=== PATIENT | male | born 1995 | race Caucasian/White ===

== ENCOUNTER 2017-03-25 01:05 | Emergency (ER) | payer BC ==
--- NOTE | 2017-03-25 02:16 | ER Document Report ---
ED General - General Chief Complaint: Shortness Of Breath Stated Complaint: CHEST PAIN Time Seen by Provider: 03/25/17 02:03 Notes: Patient is a 22-year-old male who comes emergency department for chief complaint of intermittent symptoms for the past week where he feels like he has a squeezing sensation in his chest, or his heart will feel like it is beating fast, or if he thinks about his breathing it feels like it is uncomfortable. He denies any current shortness of breath, chest pain, lightheadedness, or palpitations. He smokes cigarettes, smokes marijuana, drinks alcohol, however he denies ever using any cocaine, methamphetamine, or any other recreational drugs than marijuana. He denies IV drug abuse. No personal or family history of early cardiac disease. He denies fever or chills. TRAVEL OUTSIDE OF THE [place] IN LAST 30 DAYS: No - Related Data Allergies/Adverse Reactions: No Known Allergies Allergy (Verified 11/02/14 09:46) Past Medical History - General Information source: Patient, Parent - Social History Smoking Status: Current Every Day Smoker Smoking Education Provided: Yes - <3 min Frequency of alcohol use: Social Drug Abuse: Marijuana Lives with: Alone Family History: Reviewed & Not Pertinent - Past Medical History Cardiac Medical History: Denies: Hx Coronary Artery Disease, Hx Heart Attack, Hx Hypertension Pulmonary Medical History: Denies: Hx Asthma, Hx Bronchitis, Hx COPD, Hx Pneumonia Neurological Medical History: Denies: Hx Cerebrovascular Accident, Hx Seizures Musculoskeltal Medical History: Denies Hx Arthritis Past Surgical History: Reports: Hx Orthopedic Surgery - RIGHT 5TH FINGER - Immunizations Immunizations up to date: Yes Hx Diphtheria, Pertussis, Tetanus Vaccination: Yes - 10/29/14 Review of Systems - Review of Systems Constitutional: No symptoms reported EENT: No symptoms reported Cardiovascular: See HPI Respiratory: See HPI Gastrointestinal: No symptoms reported Genitourinary: No symptoms reported Male Genitourinary: No symptoms reported Musculoskeletal: No symptoms reported Skin: No symptoms reported Hematologic/Lymphatic: No symptoms reported Neurological/Psychological: No symptoms reported Physical Exam - Vital signs Vitals: Temp Pulse Resp BP Pulse Ox 98.3 F 114 H 14 129/75 H 99 03/25/17 01:22 03/25/17 01:22 03/25/17 01:22 03/25/17 01:03/25/17 01:22 Interpretation: Normal - General General appearance: Appears well, Alert In distress: None - Alert and well-appearing - HEENT Head: Normocephalic, Atraumatic Eyes: Normal Pupils: PERRL - Respiratory Respiratory status: No respiratory distress. No: Respiratory distress, Labored , Tachypnea Chest status: Nontender. No: Tender Breath sounds: Normal. No: Decreased air movement, Nonproductive cough, Wheezing Chest palpation: Normal - Cardiovascular Rhythm: Regular. No: Tachycardia - No tachycardia on my exam Heart sounds: Normal auscultation, S1 appreciated, S2 appreciated Murmur: No - Abdominal Inspection: Normal Distension: No distension Bowel sounds: Normal Tenderness: Nontender. No: Tender, Guarding Organomegaly: No organomegaly - Back Back: Normal, Nontender - Extremities General upper extremity: Normal inspection, Nontender, Normal color, Normal ROM , Normal temperature General lower extremity: Normal inspection, Nontender, Normal color, Normal ROM , Normal temperature, Normal weight bearing. No: Marino's sign - Neurological Neuro grossly intact: Yes Cognition: Normal Orientation: AAOx4 Razia Coma Scale Eye Opening: Spontaneous Razia Coma Scale Verbal: Oriented Razia Coma Scale Motor: Obeys Commands [place] Coma Scale Total: 15 Speech: Normal Motor strength normal: LUE, RUE, LLE, RLE Sensory: Normal - Psychological Associated symptoms: Normal affect, Normal mood - Skin Skin Temperature: Warm Skin Moisture: Dry Skin Color: Normal Course - Re-evaluation Re-evalutation: Vital signs show initial tachycardia on arrival, however on my exam he is not tachycardic, he is alert, well-appearing, has normal respirations, clear sounding lungs, no hypoxia, no tenderness over the chest, no signs of trauma, he denies any IV drug abuse. Chest x-ray with no evidence of pneumothorax or concerning emergent abnormality. EKG shows sinus rhythm with no T-wave inversions in consecutive leads or ST segment changes, normal ID interval, no acute findings. Patient asymptomatic on my exam and on reexamination. Discussed findings. Discussed dangers of smoking, discussed cessation, discussed follow-up and return precautions. Mom states that he took Percocet a few days ago and she wants a discussion about recreational drugs, I discussed recreational drugs both taking medications not prescribed to you and illegal drugs, I discussed high chance of and disease processes. He denies SI or HI. Patient states understanding and agreement, states he plans to quit smoking as well. Discussed follow-up and return precautions. Patient states understanding and agreement. Stable at time of discharge. - Vital Signs Vital signs: Temp Pulse Resp BP Pulse Ox 98.3 F 80 14 100/78 96 03/25/17 01:22 03/25/17 03:11 03/25/17 01:22 03/25/17 03:11 03/25/17 03:11 Discharge - Discharge Clinical Impression: Shortness of breath, Rapid heartbeat Condition: Stable Disposition: HOME, SELF-CARE Additional Instructions: Your EKG, chest x-ray, and evaluation do not show any concerning abnormalities. Improve your diet, hydrate better, stop smoking. Avoid recreational drugs, do not take any medications not prescribed to you. Follow-up with primary care. Return to emergency department for any concerning or worsening symptoms including difficulty breathing, chest pain, passing out, fever of 100.4 or greater, or any other concerning symptoms.
--- NOTE | 2017-03-25 02:17 | RADIOLOGY REPORT (SQ) ---
EXAM DESCRIPTION: CHEST PA/LAT CLINICAL HISTORY: 22 years, Male, near syncope COMPARISON: 8.31.15 FINDINGS: Normal lung volume, clear parenchyma, normal cardiac silhouette, and intact bony thorax. IMPRESSION: No acute cardiopulmonary findings.
[2017-03-25 03:11] VITALS: BP 100/78
--- NOTE | 2017-03-25 19:49 | EKG REPORT ---
SEVERITY:- NORMAL ECG - SINUS RHYTHM : Confirmed by: Lilian Drew 25-Mar-2017 19:48:25
== END 2017-03-25 03:33 | disposition home or self-care (01) ==
LOC: ER 01:05
DX: R06.02 Shortness of breath (principal); R00.0 Tachycardia, unspecified; F12.10 Cannabis abuse, uncomplicated; F17.200 Nicotine dependence, unspecified, uncomplicated; Z71.6 Tobacco abuse counseling
CPT/HCPCS: 71046; 93005; 93010; 99285

== ENCOUNTER 2017-12-31 06:58 | Emergency (ER) | payer BC ==
[2017-12-31 07:17] VITALS: BP 114/74
--- NOTE | 2017-12-31 07:38 | ER Document Report ---
HPI - HPI Pain Level: 5 Notes: Patient is a 22-year-old male who presents to the ED complaining of right ear pain over the last couple days. Patient states that he has some ringing in his ear which she has had before. Patient states that he has a history of ear infections in the past and this feels similar. The pain does not radiate. Denies any drug allergies. He has not been swimming. Patient states that he had nasal congestion and discharge as well as sinus pressure that precipitated his events, but those symptoms have since improved. No other concerns or complaints. Denies any headache, fever, neck pain, URI, sore throat, chest pain , palpitations, syncope, cough, shortness of breath, wheeze, dyspnea, abdominal pain, nausea/vomiting/diarrhea, urinary retention, dysuria, hematuria, or rash. - ROS Systems Reviewed and Negative: Yes All other systems reviewed and negative Past Medical History - Social History Smoking Status: Unknown if Ever Smoked Family History: Reviewed & Not Pertinent - Past Medical History Cardiac Medical History: Denies: Hx Coronary Artery Disease, Hx Heart Attack, Hx Hypertension Pulmonary Medical History: Denies: Hx Asthma, Hx Bronchitis, Hx COPD, Hx Pneumonia Neurological Medical History: Denies: Hx Cerebrovascular Accident, Hx Seizures Renal/ Medical History: Denies: Hx Peritoneal Dialysis Musculoskeletal Medical History: Denies Hx Arthritis Past Surgical History: Reports: Hx Orthopedic Surgery - RIGHT 5TH FINGER - Immunizations Immunizations up to date: Yes Hx Diphtheria, Pertussis, Tetanus Vaccination: Yes - 10/29/14 Vertical Provider Document - CONSTITUTIONAL Agree With Documented VS: Yes Notes: PHYSICAL EXAMINATION: GENERAL: Well-appearing, well-nourished and in no acute distress. HEAD: Atraumatic, normocephalic. EYES: Pupils equal round and reactive to light, extraocular movements intact, sclera anicteric, conjunctiva are normal. ENT: EAC clear b/l. Rt TM is erythemic, bulging, with a bullous fluid formation laterally. Lt TM intact b/l without erythema, fluid, or perforation. No mastoid tenderness. Nares patent and without discharge. oropharynx clear without exudates. No tonsilar hypertrophy or erythema. Moist mucous membranes. No sinus tenderness. NECK: Normal range of motion, supple without lymphadenopathy. no rigidity/ meningismus. LUNGS: Breath sounds clear to auscultation bilaterally and equal. No wheezes rales or rhonchi. HEART: Regular rate and rhythm without murmurs, rubs, gallops. Extremities: No cyanosis, clubbing, or edema b/l. Peripheral pulses 2+. Capillary refill less than 3 seconds. NEUROLOGICAL: Cranial nerves grossly intact. Normal speech, normal gait. PSYCH: Normal mood, normal affect. SKIN: Warm, Dry, normal turgor, no rashes or lesions noted. - INFECTION CONTROL TRAVEL OUTSIDE OF THE [place] IN LAST 30 DAYS: No Course - Re-evaluation Re-evalutation: 12/31/17 07:35 Patient is an afebrile, well-hydrated, 22-year-old male who presents to the ED with acute otitis media of the right ear. Vitals are acceptable without any significant tachycardia, tachypnea, or hypoxia. PE is otherwise unremarkable. Patient is nontoxic-appearing and is tolerating p.o. without difficulties. No labs or imaging warranted at this time. Low suspicion for any sepsis, meningitis, severe dehydration, respiratory compromise, mastoiditis, or other systemic emergent condition at this time. Patient is aware that condition can change from initial presentation and we will send him home with a prescription for amoxicillin. Conservative measures for symptoms. He needs to monitor symptoms closely and seek medical attention with any acute changes. Recheck with your PCM this week. Call ENT for further evaluation and management. Return to the ED with any worsening/concerning symptoms otherwise as reviewed in discharge. Patient is in agreement. - Vital Signs Vital signs: Temp Pulse Resp BP Pulse Ox 98.1 F 101 H 16 114/74 96 12/31/17 07:14 12/31/17 07:14 12/31/17 07:14 12/31/17 07:14 12/31/17 07:14 Discharge - Discharge Clinical Impression: Acute otitis media, right Condition: Stable Disposition: HOME, SELF-CARE Instructions: Otitis Media ([facility]), Serous Otitis Media ([facility]) Additional Instructions: Maintain adequate fluid intake Take meds as directed tylenol/ibuprofen as needed Avoid Q-tips in the ears over the counter cold medication as needed for symptoms F/u: with your PCM in 2-3 days for a recheck Schedule a f/u with ENT Return to the ED with any fever, dizziness, tinnitus, headaches, worsening pain , chest pain, palpitations, syncope, neck pain/stiffness, shortness of breath, wheezing, drooling, trouble swallowing/breathing, abdominal pain, n/v/d, rash, or worsening/concerning symptoms otherwise. Prescriptions: Amoxicillin Trihydrate [Amoxil 875 mg Tablet] 1 tab PO BID #20 tablet Referrals: JEAN CLAUDE PÉREZ DO [ASSOCIATE] - Follow up as needed
== END 2017-12-31 07:52 | disposition home or self-care (01) ==
LOC: ER 06:58
DX: H66.91 Otitis media, unspecified, right ear (principal)
CPT/HCPCS: 99282

== ENCOUNTER 2018-05-13 18:40 | Emergency (ER) | payer BC ==
[2018-05-13] MEDS ORDERED: LIDOCAINE 1% INJ-PF (10 MG/ML) 30 ML SDV INJ ONE (19:48)
--- NOTE | 2018-05-13 19:50 | ER Document Report ---
ED Medical Screen (RME) - General Chief Complaint: Laceration to finger Stated Complaint: FINGER LACERATION Time Seen by Provider: 05/13/18 19:44 Mode of Arrival: Ambulatory Information source: Patient Notes: 23-year-old male presents with a laceration to his right index and middle finger. Patient states he was removing glass when he was cut. Tetanus is up-to-date. I have greeted and performed a rapid initial assessment of this patient. A comprehensive ED assessment and evaluation of the patient, analysis of test results and completion of medical decision making process we will be contacted by additional ED providers. PHYSICAL EXAMINATION: Vital signs reviewed GENERAL: Well-appearing, well-nourished and in no acute distress. LUNGS: No respiratory distress Musculoskeletal: Normal range of motion NEUROLOGICAL: Normal speech, normal gait. PSYCH: Normal mood, normal affect. SKIN: Laceration to the right index finger and right middle finger. TRAVEL OUTSIDE OF THE [place] IN LAST 30 DAYS: No - HPI Onset: Just prior to arrival Onset/Duration: Sudden Quality of pain: Achy Severity: Mild Associated Symptoms: None Exacerbated by: Movement Relieved by: Denies Similar symptoms previously: No Recently seen / treated by doctor: No - Related Data Smoking: Non-smoker Frequency of alcohol use: None Drug Abuse: None Allergies/Adverse Reactions: No Known Allergies Allergy (Verified 12/31/17 07:22) Past Medical History - Past Medical History Cardiac Medical History: Denies: Hx Coronary Artery Disease, Hx Heart Attack, Hx Hypertension Pulmonary Medical History: Denies: Hx Asthma, Hx Bronchitis, Hx COPD, Hx Pneumonia Neurological Medical History: Denies: Hx Cerebrovascular Accident, Hx Seizures Renal/ Medical History: Denies: Hx Peritoneal Dialysis Musculoskeltal Medical History: Denies Hx Arthritis Past Surgical History: Reports: Hx Orthopedic Surgery - RIGHT 5TH FINGER - Immunizations Immunizations up to date: Yes Hx Diphtheria, Pertussis, Tetanus Vaccination: Yes - 10/29/14 Physical Exam - Vital signs Vitals: Temp Pulse Resp BP Pulse Ox 98.7 F 120 H 16 115/66 98 05/13/18 18:48 05/13/18 18:48 05/13/18 18:48 05/13/18 18:48 05/13/18 18:48 Course - Vital Signs Vital signs: Temp Pulse Resp BP Pulse Ox 98.7 F 120 H 16 115/66 98 05/13/18 18:48 05/13/18 18:48 05/13/18 18:48 05/13/18 18:48 05/13/18 18:48
--- NOTE | 2018-05-13 20:19 | RADIOLOGY REPORT (SQ) ---
EXAM DESCRIPTION: XR HAND 1-2 VIEWS COMPLETED DATE/TME: 05/13/2018 19:47 CLINICAL HISTORY: 23 years, Male, Laceration with glass Findings: Bony alignment is anatomic. No fracture or dislocation. Soft tissues are unremarkable. IMPRESSION: No fracture. No radiopaque foreign body.
--- NOTE | 2018-05-13 21:34 | ER Document Report ---
ED General - General Chief Complaint: Laceration to finger Stated Complaint: FINGER LACERATION Time Seen by Provider: 05/13/18 19:44 Mode of Arrival: Ambulatory Information source: Patient TRAVEL OUTSIDE OF THE [place] IN LAST 30 DAYS: No - HPI Patient complains to provider of: Finger lacerations Onset: Just prior to arrival Onset/Duration: Sudden Severity: Severe Pain Level: 4 Associated symptoms: None Exacerbated by: Denies Relieved by: Denies Similar symptoms previously: No Recently seen / treated by doctor: No Notes: 23-year-old male coming in today with chief complaint of lacerations to the right index and right middle fingers. He lacerated it while he was taking glass out of the window. Last Tdap was around 10 years ago. - Related Data Allergies/Adverse Reactions: No Known Allergies Allergy (Verified 12/31/17 07:22) Past Medical History - General Information source: Patient - Social History Smoking Status: Current Every Day Smoker Frequency of alcohol use: None Drug Abuse: None Family History: Reviewed & Not Pertinent Patient has suicidal ideation: No Patient has homicidal ideation: No - Past Medical History Cardiac Medical History: Denies: Hx Coronary Artery Disease, Hx Heart Attack, Hx Hypertension Pulmonary Medical History: Denies: Hx Asthma, Hx Bronchitis, Hx COPD, Hx Pneumonia Neurological Medical History: Denies: Hx Cerebrovascular Accident, Hx Seizures Renal/ Medical History: Denies: Hx Peritoneal Dialysis Musculoskeletal Medical History: Denies Hx Arthritis Past Surgical History: Reports: Hx Orthopedic Surgery - RIGHT 5TH FINGER - Immunizations Immunizations up to date: Yes Hx Diphtheria, Pertussis, Tetanus Vaccination: Yes - 10/29/14 Review of Systems - Review of Systems Notes: Constitutional: No fevers. No chills. EENT: No eye redness. No eye pain. No ear pain. No sore throat. Cardiovascular: No chest pain. No palpitations. Respiratory: No cough. No shortness of breath. No respiratory distress. Gastrointestinal: No abdominal pain. No nausea, vomiting, or diarrhea. Genitourinary: Atraumatic. No lesions. No pain. No discharge. Musculoskeletal: Atraumatic. No swelling. No deformities. Multiple finger lacerations Skin: No rash or lesions. Lymphatic: No swollen lymph nodes. Neurologic: No headache. No syncope. Psychiatric: No suicidal or homicidal ideation. Physical Exam - Vital signs Vitals: Temp Pulse Resp BP Pulse Ox 98.7 F 120 H 16 115/66 98 05/13/18 18:48 05/13/18 18:48 05/13/18 18:48 05/13/18 18:48 05/13/18 18:48 - Notes Notes: General: Well-developed, well-nourished. In no acute distress. Non-toxic appearing. Cardiac: Well-perfused. Regular rate and rhythm. No murmurs, rubs, or gallops. Pulmonary: No respiratory distress. No cyanosis. Bilateral lung fiels are clear to auscultation. Abdominal: Non-distended. Non-rigid. Bowels sounds are present in all four quadrants. No guarding or rebound. HEENT: Head is atraumatic. Conjunctivae not reddened. No tearing. PERRL. EOMI. Orbits atraumatic. No periorbital swelling or erythema. Oropharynx is without erythema, swelling, or exudates. Neck: Supple. No adenopathy. No meningismus. Dermatologic: Warm with good turgor. No rash. Atraumatic. Chest: Atraumatic. No chest wall tenderness to palpation. Musculoskeletal: There is a 2-1/2 cm laceration on the dorsal aspect of the right index finger over the proximal phalanx. There is a 1 cm laceration on the dorsal aspect of the right middle finger. Patient has full range of motion of both digits both actively and passively. Genitourinary: Examination deferred Neurologic: No gross neurologic deficits. Psychiatric: Normal mood. Course - Vital Signs Vital signs: Temp Pulse Resp BP Pulse Ox 98.7 F 120 H 16 115/66 98 05/13/18 18:48 05/13/18 18:48 05/13/18 18:48 05/13/18 18:48 05/13/18 18:48 - Consults DR MAGAÑA Time consulted: 22:46 Reason for consultation: 05/13/18 22:46 Extensor tendon laceration Consulted provider: follow-up in office - Call office in the a.m. Procedures - Laceration/Wound Repair right index finger Time completed: 22:41 Wound length (cm): 3 Wound's Depth, Shape: Flap, Other - Through subcutaneous layer Laceration pre-procedure: Sterile PPE donned, Sterile drapes applied, Shur-Clens applied Anesthetic type: 1% Lidocaine Volume Anesthetic (mLs): 3 Wound explored: Clean Wound Repaired With: Sutures Suture Size/Type: 4:0, Ethilon Number of Sutures: 6 Layer Closure?: No Post-procedure wound care: Sterile dressing applied, Splint applied Post-procedure NV exam normal: Yes Complications: No Notes: 05/13/18 22:43 There is a full extensor tendon laceration noted right middle finger Time completed: 22:43 Wound length (cm): 1 Wound's Depth, Shape: Other - In the subcutaneous tissue Laceration pre-procedure: Sterile PPE donned, Sterile drapes applied, Shur-Clens applied Anesthetic type: 1% Lidocaine Volume Anesthetic (mLs): 1 Wound explored: Clean Wound Repaired With: Sutures Suture Size/Type: 4:0 Number of Sutures: 3 Layer Closure?: No Post-procedure wound care: Sterile dressing applied Post-procedure NV exam normal: No Complications: No Discharge - Discharge Clinical Impression: Finger laceration Qualifiers: Encounter type: initial encounter Finger: index finger Damage to nail status: without damage Foreign body presence: without foreign body Laterality: right Qualified Code(s): S61.210A - Laceration without foreign body of right index finger without damage to nail, initial encounter Laceration of middle finger Qualifiers: Encounter type: initial encounter Damage to nail status: without damage Foreign body presence: without foreign body Laterality: right Qualified Code(s): S61.212A - Laceration without foreign body of right middle finger without damage to nail, initial encounter Extensor tendon laceration of finger with open wound Qualifiers: Encounter type: initial encounter Qualified Code(s): S56.429A - Laceration of extensor muscle, fascia and tendon of unspecified finger at forearm level, initial encounter; S61.209A - Unspecified open wound of unspecified finger without damage to nail, initial encounter Condition: Good Disposition: HOME, SELF-CARE Instructions: Antibiotic Ointment Protection ([facility]), Laceration Care ([facility]), Oral Narcotic Medication ([facility]), Soap Cleansing ([facility]), Tetanus Immunization Given ([facility]) Additional Instructions: Please call Dr. naidu or another hand surgeon's office in the morning to set up an appointment to have the extensor tendon fixed. Prescriptions: Cephalexin Monohydrate [Keflex 500 mg Capsule] 500 mg PO Q6H 5 Days #28 capsule Referrals: DUSTIN MAGAÑA DO [ACTIVE STAFF] - Follow up tomorrow
[2018-05-13] MEDS ORDERED: DIPH/PERTUSS(ACELL)/TETANUS VAC/PF 0.5 ML SYR (>=10YO) IM ONE (22:47)
[2018-05-13] MEDS ORDERED: HYDROCODONE/ACETAMINOPHEN 5-325 MG (6 TAB/ER DISP) PO PRN (22:47)
[2018-05-14 00:06] VITALS: BP 132/85
== END 2018-05-14 00:05 | disposition home or self-care (01) ==
LOC: ER 18:40
DX: S61.201A Unspecified open wound of left index finger without damage to nail, initial encounter (principal); S61.212A Laceration without foreign body of right middle finger without damage to nail, initial encounter; S66.320A Laceration of extensor muscle, fascia and tendon of right index finger at wrist and hand level, initial encounter; W25.XXXA Contact with sharp glass, initial encounter; Z23 Encounter for immunization; F17.200 Nicotine dependence, unspecified, uncomplicated
CPT/HCPCS: 99283; 90471; 73120; 90715; 12002; J3490

== ENCOUNTER 2018-05-17 12:51 | Day surgery (SDC) | payer BC ==
[~2018-05-17 12:51] MED LIST: CEFAZOLIN 2 GM/D5W RTU 2 GM/50 ML RTUPB IV PRN
[2018-05-17] MEDS ORDERED: FENTANYL CITRATE INJ/PF 100 MCG/2 ML AMPUL ONE (12:56)
[2018-05-17] MEDS ORDERED: ONDANSETRON HCL INJ/PF 4 MG/2 ML SDV ONE (12:57)
[2018-05-17] MEDS ORDERED: DEXAMETHASONE SOD PHOSPHATE INJ 4 MG/1 ML VIAL ONE (12:57)
[2018-05-17] MEDS ORDERED: MIDAZOLAM 2 MG/2 ML INJ ONE (12:57)
[2018-05-17] MEDS ORDERED: PROPOFOL INJ 200 MG/20 ML VIAL IV ONE (12:57)
[2018-05-17] MEDS ORDERED: CEFAZOLIN 2 GM/D5W RTU 2 GM/50 ML RTUPB IV ONE (12:59)
[2018-05-17] MEDS ORDERED: ALBUTEROL SULFATE 0.083% NEB 2.5 MG/3 ML AMPUL NEB ONE (13:23)
[2018-05-17] MEDS ORDERED: SCOPOLAMINE HYDROBROMIDE 1.5 MG PATCH.TD72 ONE (13:47)
[2018-05-17] MEDS ORDERED: MEPERIDINE HCL/PF INJ 25 MG/1 ML DISP.SYRIN IV PRN (14:16)
[2018-05-17] MEDS ORDERED: FENTANYL CITRATE INJ/PF 100 MCG/2 ML AMPUL IV PRN ×3 (14:16)
[2018-05-17] MEDS ORDERED: MORPHINE SULFATE 10 MG/ML INJ IV PRN ×2 (14:16→15:19)
[2018-05-17] MEDS ORDERED: DIPHENHYDRAMINE HCL 50 MG/ML VIAL IV PRN (14:16)
[2018-05-17] MEDS ORDERED: PROMETHAZINE HCL INJ 25 MG/1 ML VIAL IV PRN ×2 (14:16)
[2018-05-17] MEDS: LIDOCAINE 1% INJ-PF (10 MG/ML) 30 ML SDV ONE ×2 (14:20→14:31)
--- NOTE | 2018-05-17 15:10 | Operative Report ---
Operative Report DATE OF SURGERY: 05/17/18 PREOPERATIVE DIAGNOSIS: Right index finger extensor tendon laceration zone IV POSTOPERATIVE DIAGNOSIS: Same OPERATION: Repair Right index finger extensor tendon laceration zone IV SURGEON: DUSTIN MAGAÑA ANESTHESIA: LMAC COMPLICATIONS: None ESTIMATED BLOOD LOSS: Minimal PROCEDURE: Indication for above procedure: 23-year-old male who sustained laceration to his index finger from a piece of glass patient was seen at the emergency room where the area was irrigated and loosely closed. Documentation indicated extensor tendon laceration. On examination patient had evidence of extensor lag. At that point decision was made to proceed with operative intervention. Risks and benefits were explained patient verbalized understanding consented for the procedure. Procedure In Detail: Patient was seen and evaluated in the preoperative holding area. The RIGHT upper extremity was initialized and marked. Patient received 2g of Ancef IV for bacterial prophylaxis. Patient was taken back to the operative room where transferred to the operative table. Once they were adequately anesthetized a nonsterile tourniquet was placed on the upper extremity. A surgical team debriefing was performed ensuring all instrumentation was available, the surgical procedure was discussed with possible concerns reviewed. A digital block was performed utilizing 10 mL of 1% lidocaine without epinephrine. The upper extremity was prepped with chlorhexidine and alcohol and draped in a sterile fashion. A timeout was done identifying correct patient, procedure and extremity everyone in attendance agree with this and verbalized no concerns. The extremity was exsanguinated the tourniquet was inflated to 250 mmHg. Previous laceration was opened and extended proximally and distally. Blunt dissection was performed. Any peripheral veins were coagulated with bipolar cautery. Extensor tendon was then found to have 70% laceration from radial to ulnar within zone 4. Wound was copiously irrigated with normal saline no gross contamination was appreciated. Extensor tendon was then repaired with a running Silverskiold locking suture utilizing 3-0 Supramid suture. At completion patient had full extension of the PIP joint with tenodesis. Tourniquet was deflated. Any peripheral bleeding was controlled with bipolar cautery until wound was dry. Incision was closed with interrupted 4-0 nylon suture. Patient was placed in a volar splint maintaining full extension of the PIP and MP joints of the index and middle finger. Postoperative plan: Patient will follow-up as scheduled for wound check. will begin occupational therapy within 5-7 days to be fitted for a thermoplastic splint maintaining full extension of the PIP joint as per zone 4 extensor tendon repair protocol.
--- NOTE | 2018-05-17 15:10 | Discharge Summary ---
Discharge Summary (SDC) - Discharge Final Diagnosis: Right index finger extensor tendon laceration zone III Date of Surgery: 05/17/18 Discharge Date: 05/17/18 Condition: Good Forms: ASU Anesthesia D/C Instruction, Discharge POC-Surgical Service Treatment or Instructions: Schedule Follow Up w/ Dr. Aravind Magaña @ [facility] for Surgery to be seen in 10-14 days or as scheduled Reg[place]: Sweeny: White: Ice and elevate Keep splint clean/dry/intact, do not remove. If your fingers become numb please unwrap the Dave wrap but leave the splint in place, if the sensation does not return within 30 minutes please return to the emergency department. Please use ibuprofen (Motrin or Advil) 600-800 mg every 8 hours as needed for pain or fever DO NOT TAKE w/ TORADOL may use once TORADOL complete. You may also use acetaminophen (Tylenol) 1000 mg every 4-6 hours as needed for pain or fever. Please be aware that many medications contain acetaminophen, do not exceed a total of 1000 mg of acetaminophen every 6 hours. If ibuprofen and acetaminophen are not sufficient for your pain you may take the Percocet/[facility]. Please be aware that the Percocet/[facility] does contain Tylenol. Stool softener of choice when on pain medication. USE OF [id number] IBUPROFEN: Ibuprofen (Advil, Nuprin, Medipren, Motrin IB) is a medication for fever and pain control. In addition, it has anti- inflammatory effects which may be beneficial, especially in the treatment of injuries. It's best to take ibuprofen with food. Persons with ulcer disease or allergy to aspirin should notify their physician of this before taking ibuprofen. Ibuprofen can be given every four to six hours, for a total of four doses daily. Age Pain or fever dose Antiinflammatory dose 6-8 yr 200 mg (1 tab) 200 mg (1 tab) 9-11 yr 200 mg (1 tab) 200-400 mg (1-2 tab) 11-14 yr 200-400 mg (1-2 tab) 400 mg (2 tab) 15-adult 400 mg (2 tab) 600 mg (3 tab) ORAL NARCOTIC MEDICATION: You have been given a prescription for pain control. This medication is a narcotic. It's best taken with food, as nausea can result if taken on an empty stomach. Don't operate machinery or drive within six hours of taking this medication. Do not combine this medicine with alcohol, or with any medication which can cause sedation (such as cold tablets or sleeping pills) unless you get permission from the physician. Narcotics tend to cause constipation. If possible, drink plenty of fluids and eat a diet high in fiber and fruits. Please be aware that prescription narcotics also have the potential for abuse. People become addicted to these medications because of the general sense of wellbeing that they induce. This feeling along with a significant reduction in tension, anxiety, and aggression provides a stimulating seductive quality to these drugs. Once your pain is under control, we encourage you to discard your unused narcotics. Prescriptions: Hydrocodone/Acetaminophen [[facility] 5-325 mg Tablet] 1 tab PO Q6 PRN #25 tablet PRN Reason: Referrals: ARAVIND MAGAÑA DO [ACTIVE STAFF] - Respiratory Treatments at Home: Deep Breathing/Coughing Discharge Activity: No Lifting Over 10 Pounds, No Lifting/Push/Pulling Report the Following to Your Physician Immediately: Fever over 101 Degrees, Unusual Bleeding, Redness, Swelling, Warmth, Increased Soreness
[2018-05-17] MEDS ORDERED: ONDANSETRON HCL INJ/PF 4 MG/2 ML SDV IV PRN (15:19)
[2018-05-17] MEDS ORDERED: HYDROCODONE/ACETAMINOPHEN 5-325 MG TABLET PO PRN (15:19)
[2018-05-17 16:54] VITALS: BP 119/75
== END 2018-05-17 16:45 | disposition home or self-care (01) ==
LOC: OROUT 12:51
PROVIDERS: ATTEND Orthopaedic Surgery
DX: S66.320A Laceration of extensor muscle, fascia and tendon of right index finger at wrist and hand level, initial encounter (principal); S61.220A Laceration with foreign body of right index finger without damage to nail, initial encounter; W25.XXXA Contact with sharp glass, initial encounter; F17.210 Nicotine dependence, cigarettes, uncomplicated
CPT/HCPCS: 26418; 94640; J2250; J1100; J3010; J3490; J2405; J2704; J0690; 1810

== ENCOUNTER 2019-11-06 10:53 | Emergency (ER) | payer OTHER, BC ==
[2019-11-06] MEDS ORDERED: NORMAL SALINE 500 ML IV ONE (11:07)
[2019-11-06] MEDS ORDERED: ONDANSETRON HCL INJ/PF 4 MG/2 ML SDV IV ONE (11:12)
[2019-11-06] MEDS ORDERED: NORMAL SALINE 1000 ML 1,000 ML IV ONE (11:12)
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
[2019-11-06] MEDS ORDERED: LIDOCAINE 1% INJ-PF (10 MG/ML) 30 ML SDV ONE (13:00)
[2019-11-06 13:39] VITALS: BP 128/80
== END 2019-11-06 13:30 ==
LOC: ER 10:53
PROC: 0HQDXZZ Repair Right Lower Arm Skin, External Approach (ICD-10-PCS; principal; 2019-11-06)
DX: S40.011A Contusion of right shoulder, initial encounter (principal); S51.012A Laceration without foreign body of left elbow, initial encounter; F11.10 Opioid abuse, uncomplicated; R11.10 Vomiting, unspecified; V87.7XXA Person injured in collision between other specified motor vehicles (traffic), initial encounter
CPT/HCPCS: 99285; 96361; 96374; 71045; 70450; 72125; 12001; J3490; J2405; J7030; J7040